=== PATIENT | female | born 1985 | race Two or more races ===

== ENCOUNTER 2017-08-23 12:05 | Emergency (ER) | payer MEDICAID ==
[2017-08-23] MEDS ORDERED: ACETAMINOPHEN 325 MG TABLET PO ONE (12:51)
--- NOTE | 2017-08-23 12:55 | ER Document Report ---
ED GI/ - General Chief Complaint: Back Pain Stated Complaint: BACK PAIN Time Seen by Provider: 08/23/17 12:26 Mode of Arrival: Ambulatory Information source: Patient Notes: 32-year-old female presents to ED for complaint of flank pain bilaterally for 2 days with frequency of urine. She states she had similar pain and discomfort when she was and had kidney stones and urinary tract infection. She denies any injury. She states the cramps in her pelvic area also with no vaginal discharge. TRAVEL OUTSIDE OF THE [place] IN LAST 30 DAYS: No - HPI Patient complains to provider of: Flank pain - States she is on her., Vaginal bleeding. No: Vaginal discharge, Vaginal pain Onset: Other - pain 2 days period today Quality of pain: Achy, Cramping Severity at maximum: Severe Severity in ED: Severe Pain Level: 5 Location: Left flank, Right flank, Pelvis Vaginal bleeding (Compared to normal period): Similar LMP: today Associated symptoms: Urinary frequency, Urinary urgency, Other - flank pain bilaterally Exacerbated by: Denies Relieved by: Denies Similar symptoms previously: Yes Recently seen / treated by doctor: No Past Medical History - General Information source: Patient - Social History Smoking Status: Former Smoker Cigarette use (# per day): No Chew tobacco use (# tins/day): No Frequency of alcohol use: None Drug Abuse: None Occupation: none Lives with: Alone - with children Family History: Reviewed & Not Pertinent Patient has suicidal ideation: No Patient has homicidal ideation: No - Past Medical History Cardiac Medical History: Reports: None Pulmonary Medical History: Reports: None EENT Medical History: Reports: None Neurological Medical History: Reports: None Endocrine Medical History: Reports: None Renal/ Medical History: Reports: None Malignancy Medical History: Reports: None GI Medical History: Reports: None Musculoskeltal Medical History: Reports None Skin Medical History: Reports None Psychiatric Medical History: Reports: None Traumatic Medical History: Reports: None Infectious Medical History: Reports: None Surgical Hx: Negative - Immunizations Immunizations up to date: Yes Hx Diphtheria, Pertussis, Tetanus Vaccination: Yes Review of Systems - Review of Systems Constitutional: No symptoms reported EENT: No symptoms reported Cardiovascular: No symptoms reported Respiratory: No symptoms reported Gastrointestinal: No symptoms reported Genitourinary: Frequency, Flank pain - Bilateral, Urgency Female Genitourinary: Other - Cramp just started. Today Musculoskeletal: No symptoms reported Skin: No symptoms reported Hematologic/Lymphatic: No symptoms reported Neurological/Psychological: No symptoms reported -: Yes All other systems reviewed and negative Physical Exam - Vital signs Vitals: Temp Pulse Resp BP Pulse Ox 98.4 F 86 16 111/80 97 08/23/17 12:22 08/23/17 12:22 08/23/17 12:22 08/23/17 12:22 08/23/17 12:22 Interpretation: Normal - General General appearance: Appears well, Alert - HEENT Head: Normocephalic, Atraumatic Eyes: Normal Pupils: PERRL - Respiratory Respiratory status: No respiratory distress Chest status: Nontender Breath sounds: Normal Chest palpation: Normal - Cardiovascular Rhythm: Regular Heart sounds: Normal auscultation Murmur: No - Abdominal Inspection: Normal Distension: No distension Bowel sounds: Normal Tenderness: Tender - Bilateral pelvic tenderness just started cycle today. Organomegaly: No organomegaly - Back Back: Normal, Tender, CVA tenderness - Bilateral. No: Deformity/step-off, Vertebra tenderness, Scars, Scoliosis, Wounds - Extremities General upper extremity: Normal inspection, Nontender, Normal color, Normal ROM , Normal temperature General lower extremity: Normal inspection, Nontender, Normal color, Normal ROM , Normal temperature, Normal weight bearing. No: Ranjit's sign - Neurological Neuro grossly intact: Yes Cognition: Normal Orientation: AAOx4 [place] Coma Scale Eye Opening: Spontaneous Christa Coma Scale Verbal: Oriented Christa Coma Scale Motor: Obeys Commands Christa Coma Scale Total: 15 Speech: Normal Motor strength normal: LUE, RUE, LLE, RLE Sensory: Normal - Psychological Associated symptoms: Normal affect, Normal mood - Skin Skin Temperature: Warm Skin Moisture: Dry Skin Color: Normal Course - Re-evaluation Re-evalutation: 08/23/17 15:06 CT showed a stone in the right ureter about 3. 3 x 2.4 x 4.4 in the distal ureter. Patient was treated with ibuprofen, Flomax, in the emergency room and then discharged home with prescriptions for ibuprofen and Zofran Flomax and Riesel. Patient was also recommended following up with urologist Dr. Orta. - Vital Signs Vital signs: Temp Pulse Resp BP Pulse Ox 98.4 F 86 16 111/80 97 08/23/17 12:22 08/23/17 12:22 08/23/17 12:22 08/23/17 12:22 08/23/17 12:22 - Laboratory Laboratory results interpreted by me: 08/23/17 12:50 Urine Ascorbic Acid 40 H - Diagnostic Test Radiology reviewed: Image reviewed, Reports reviewed Discharge - Discharge Clinical Impression: Ureterolithiasis Disposition: HOME, SELF-CARE Additional Instructions: KIDNEY STONE: You are passing or have passed a kidney stone. These stones are usually due to increased calcium or uric acid concentrations in your urine. Stones within the kidney itself are not painful. The pain occurs as the stone leaves the kidney to pass down the long tube, called the ureter, leading to the bladder. If the stone is small, it will usually pass by itself. Most patients can pass the stone at home. You will usually receive medications for pain, nausea or vomiting, and sometimes a medication to assist in passing the kidney stone. However, if the pain is very severe or if vomiting prevents you from taking oral pain medications, you may need to return for further treatment. Drink three or four quarts of fluids per day. You will be given pain medication (if needed) and urine strainers. Strain all your urine to see if the stone passes. If your doctor has asked you to bring the stone in for analysis, return with the stone once it has passed. Return if pain or vomiting become severe, if you develop a high fever, if you are unable to pass your urine, or if other unusual symptoms occur. Ibuprofen Ibuprofen is an excellent, safe drug for pain control. In addition, it has potent antiinflammatory effects which are beneficial, especially in the treatment of injuries, arthritis, or tendonitis. It's best to take ibuprofen with food. Persons with ulcer disease or allergy to aspirin should notify their physician of this before taking ibuprofen. Take the medication exactly as prescribed. Don't take additional doses unless instructed to do so by your doctor. If you develop wheezing, shortness of breath, hives, faintness, stomach pain, vomiting, or dark black stools, return for re-evaluation at once. ANTINAUSEA MEDICATION: You have been given a medication to suppress nausea and vomiting. This type of medication can be given as a shot, pill, or suppository. It will usually last for many hours. Pills and shots usually last six to eight hours, suppositories last about 12 hours. For the typical illness, only one or two doses of the medication may be necessary. Mild lightheadedness may occur. This type of medicine can cause drowsiness. Do not drive or operate dangerous machinery while under its influence. Do not mix with alcohol. See your doctor at once if you have muscle spasms or tightness, or uncontrollable motions (particularly of the neck, mouth, or jaw). Persistent vomiting or severe lightheadedness should also be evaluated by the physician. ORAL NARCOTIC MEDICATION: You have been given a prescription for pain control. This medication is a narcotic. It's best taken with food, as nausea can result if taken on an empty stomach. Don't operate machinery or drive within six hours of taking this medication. Do not combine this medicine with alcohol, or with any medication which can cause sedation (such as cold tablets or sleeping pills) unless you get permission from the physician. Narcotics tend to cause constipation. If possible, drink plenty of fluids and eat a diet high in fiber and fruits. Please be aware that prescription narcotics also have the potential for abuse. People become addicted to these medications because of the general sense of wellbeing that they induce. This feeling along with a significant reduction in tension, anxiety, and aggression provides a stimulating seductive quality to these drugs. Once your pain is under control, we encourage you to discard your unused narcotics. FLOMAX (tamsulosin): Flomax is a medicine that shrinks the prostate gland. It helps relieve symptoms of benign prostatic hypertrophy, such as frequent urination, weak stream, and inadequate emptying. It has been shown to dilate the ureter (tube leading from the kidney to the bladder) and help in passing kidney stones Flomax usually causes no side effects. You may notice slight tiredness and dizziness for a few days. Some patients develop nasal congestion. Rarely, impotence can occur. If the symptoms are bothersome and don't improve with continued use, call your doctor. Contact your doctor or return if you have fainting spells, severe weakness or dizziness, shortness of breath, or rash. FOLLOW-UP CARE: If you have been referred to a physician for follow-up care, call the physician s office for an appointment as you were instructed or within the next two days. If you experience worsening or a significant change in your symptoms, notify the physician immediately or return to the Emergency Department at any time for re-evaluation. Prescriptions: Hydrocodone/Acetaminophen [Riesel 5-325 mg Tablet] 1 tab PO Q6HP PRN #7 tablet PRN Reason: Ondansetron [Zofran Odt 4 mg Tablet] 4 mg PO Q6HP PRN #10 tab.rapdis PRN Reason: Ibuprofen 600 mg PO Q8HP PRN #14 tablet PRN Reason: Tamsulosin HCl [Flomax] 0.4 mg PO DAILY #10 cap.er.24h Referrals: VIKTORIA STILES MD [[facility]] - Follow up as needed
[2017-08-23 13:02] LABS: APPEARANCE,URINE SLIGHTLY-CLOUDY; BILIRUBIN,URINE NEGATIVE (NEGATIVE); GLUCOSE, URINE NEGATIVE (NEGATIVE); KETONES,URINE NEGATIVE (NEGATIVE); LEUKOCYTE ESTERASE,URINE NEGATIVE (NEGATIVE); NITRITE,URINE NEGATIVE (NEGATIVE); PROTEIN,URINE NEGATIVE (NEGATIVE); URINE SPECIFIC GRAVITY 1.024; UROBILINOGEN,URINE NEGATIVE mg/dL (<2.0)
--- NOTE | 2017-08-23 14:45 | RADIOLOGY REPORT (SQ) ---
EXAM DESCRIPTION: CT LTD RENAL STONE PROTOCOL ON COMPLETED DATE/TIME: 08/23/2017 2:24 pm REASON FOR STUDY: bilateral flank pain COMPARISON: None. TECHNIQUE: CT scan of the abdomen and pelvis performed without intravenous or oral contrast. Images reviewed with lung, soft tissue, and bone windows. Reconstructed coronal and sagittal MPR images revi ewed. All images stored on PACS. All CT scanners at this facility use dose modulation, iterative reconstruction, and/or weight based d osing when appropriate to reduce radiation dose to as low as reasonably achievable (ALARA). [facility]: Dose Right [facility]: CareDose [facility]: Dose Right [facility]: Teradose 4D [facility]: [employer] RADIATION DOSE: Up-to-date CT equipment and radiation dose reduction techniques were employed. CTDIv ol: 6.4 mGy. DLP: 327 mGy-cm.mGy. LIMITATIONS: None. FINDINGS: LOWER CHEST: No significant findings. No nodules or infiltrates. NON-CONTRASTED LIVER, SPLEEN, ADRENALS: Evaluation limited by lack of IV contrast. No identified sign ificant masses. PANCREAS: No masses. No peripancreatic inflammatory changes. GALLBLADDER: No identified stones by CT criteria. No inflammatory changes to suggest cholecystitis. RIGHT KIDNEY AND URETER: No suspicious masses. Assessment limited by lack of IV contrast. No signif icant calcifications. Moderate hydronephrosis and ureterectasis on the basis of a 3.3 x 2.4 x 4.4 m m distal ureterolith. LEFT KIDNEY AND URETER: No suspicious masses. Assessment limited by lack of IV contrast. Incidental note is made of a single punctate nonobstructing nephrolith. No hydronephrosis or hydroureter. AORTA AND RETROPERITONEUM: No aneurysm. No retroperitoneal masses or adenopathy. BOWEL AND PERITONEAL CAVITY: No obvious masses or inflammatory changes. No free fluid. APPENDIX: Normal. PELVIS, BLADDER, AND ABDOMINAL WALL:No abnormal masses. No free fluid. Bladder normal. BONES: No significant findings. OTHER: No other significant finding. IMPRESSION: Partially obstructing right distal ureterolith as detailed above. COMMENT: Quality ID # [id number]: Final reports with documentation of one or more dose reduction techniques (e.g., Automated exposure control, adjustment of the mA and/or kV according to patient size, use of iterative reconstruction technique) TECHNICAL DOCUMENTATION: JOB ID: [id number]- All Rights Reserved
[2017-08-23] MEDS ORDERED: TAMSULOSIN HCL 0.4 MG CAP.SR.24H PO ONE (15:07)
[2017-08-23 15:25] VITALS: BP 104/62
== END 2017-08-23 15:25 | disposition home or self-care (01) ==
LOC: ER 12:05
DX: N20.1 Calculus of ureter (principal); M54.9 Dorsalgia, unspecified; R10.9 Unspecified abdominal pain; R35.0 Frequency of micturition; Z87.891 Personal history of nicotine dependence
CPT/HCPCS: 99284; 51701; 81025; 81001; 76380; J3490 ×2